=== PATIENT | female | born 1965 | race Caucasian/White ===

== ENCOUNTER 2019-09-16 21:59 | Emergency (ER) | payer OTHER ==
[~2019-09-16] VITALS: Ht 165.1 cm; Wt 53.5 kg
--- NOTE | 2019-09-16 22:57 | RAD ---
Exam: Chest one view INDICATION: Chest pain TECHNIQUE: Frontal view of the chest Comparisons: None FINDINGS: The cardiomediastinal silhouette and pulmonary vessels are within normal limits. The lung and pleural spaces are clear. IMPRESSION: No acute cardiopulmonary process. Electronically signed by: Luann Handley MD (09/16/2019 10:54 PM) [id number]
[2019-09-16] MEDS ORDERED: diazePAM 5 MG TABLET. PO ONE (23:00)
[2019-09-16] MEDS ORDERED: MECLIZINE 12.5 MG TABLET. PO ONE (23:00)
--- NOTE | 2019-09-16 23:38 | PHYS DOC ---
General Adult EDM: Chief Complaint: DIZZY/LIGHT HEADED HPI: HPI: 54-year-old female past medical history of lower extremity neuropathy and tobacco dependence, presents to the ED with complaints of, " my head feels foggy, I have pain behind my eyes, and I have had intermittent dizzy spells for the past 2 months." States the same symptoms recurred today while watching TV around 1 PM. Reports symptoms are exacerbated with standing or sudden changes in position. Also reports that she feels as if her ribs are bruised underneath both breasts. Cannot recall any trauma, head injury or fall. No recent upper respiratory infection. States as if she feels the room is spinning. No history of syncope. No family history of ACS, aortic or connective tissue disease, sudden , or clotting disorders. Review of Systems: Review of Systems: Constitutional: Denies fever or chills Eyes: Denies change in visual acuity HENT: Denies nasal congestion or sore throat Respiratory: Denies cough or shortness of breath Cardiovascular: Denies chest pain or edema GI: Denies abdominal pain, nausea, vomiting, bloody stools or diarrhea : Denies dysuria Musculoskeletal: Denies back pain or joint pain Integument: Denies rash Neurologic: Denies headache, focal weakness or sensory changes Endocrine: Denies polyuria or polydipsia Lymphatic: Denies swollen glands Psychiatric: Denies depression or anxiety Heart Score: HEART Score for Chest Pain: HEART Score for Chest Pain Response (Comments) Value History Slighlty/Non-Suspicious 0 ECG Normal 0 Age >45 - < 65 1 Risk Factors 1 or 2 Risk Factors 1 Troponin < Normal Limit 0 Total 2 Risk Factors: Risk Factors: DM, Current or recent (<one month) smoker, HTN, HLP, family history of CAD, obesity. Risk Scores: Score 0 - 3: 2.5% MACE over next 6 weeks - Discharge Home Score 4 - 6: 20.3% MACE over next 6 weeks - Admit for Clinical Observation Score 7 - 10: 72.7% MACE over next 6 weeks - Early Invasive Strategies Current Medications: Current Meds: Current Medications Medications (Trade) Dose Ordered Sig/John Start Time Stop Time Status Last Admin Dose Admin Diazepam (Valium) 7.5 mg 1X ONCE 09/16/19 23:00 09/16/19 23:19 DC 8/8/20 23:08 7.5 MG Meclizine HCl (Antivert) 25 mg 1X ONCE 09/16/19 23:00 09/16/19 23:19 DC 09/16/19 23:08 25 MG Allergies: Allergies: Allergies Coded Allergies Type Severity Reaction Last Updated Verified Penicillins Allergy Mild 09/16/19 Yes Physical Exam: PE: Constitutional: Well developed, well nourished, no acute distress, non-toxic appearance. [] HENT: Normocephalic, atraumatic, bilateral external ears normal, oropharynx moist, no oral exudates, nose normal. [] Horizontal nystagmus works when looking left Eyes: PERRLA, EOMI, conjunctiva normal, no discharge. [] Neck: Normal range of motion, no tenderness, supple, no stridor. [] Cardiovascular:Heart rate regular rhythm, no murmur [] Lungs & Thorax: Bilateral breath sounds clear to auscultation [] Abdomen: Bowel sounds normal, soft, no tenderness, no masses, no pulsatile masses. [] Skin: Warm, dry, no erythema, no rash under breasts. [] Back: No tenderness, no CVA tenderness. [] Extremities: No tenderness, no cyanosis, no clubbing, ROM intact, no edema. [] Neurologic: Alert and oriented X 3, normal motor function, normal sensory function, no focal deficits noted. [] Its exam concerning for peripheral etiology, normal cerebellar ucdziit-lyeorw-lnmn-finger and rapid alternating movements, no gait ataxia Psychologic: Affect normal, judgement normal, mood normal. [] EKG: EKG: Normal sinus rhythm at 59 bpm, no axis deviation, normal intervals, T wave inversion aVL, no ST elevations or ST depressions Radiology/Procedures: Radiology/Procedures: IMAGING REPORT Signed PATIENT: MARSHA BETTS ACCOUNT: [id number] : 1965 LOCATION: ER AGE: 54 SEX: F EXAM STATUS: REG ER ORD. PHYSICIAN: DANIELLA VELASQUEZ DO REASON: cp PROCEDURE: PORTABLE CHEST 1V Exam: Chest one view INDICATION: Chest pain TECHNIQUE: Frontal view of the chest Comparisons: None FINDINGS: The cardiomediastinal silhouette and pulmonary vessels are within normal limits. The lung and pleural spaces are clear. IMPRESSION: No acute cardiopulmonary process. Electronically signed by: Luann Ng MD (09/16/2019 10:54 PM) [id number] DICTATED AND SIGNED BY: LUANN NG MD DATE: 09/16/193 CC: RED[facility] CULVER MD; [facility] ~ Course & Med Decision Making: Course & Med Decision Making Pertinent Labs and Imaging studies reviewed. (See chart for details) Concern for brief vertiginous episodes in a well-appearing female with no neurologic deficits and steady gait. DC home with meclizine. Chest x-ray and labs are unremarkable. Encouraged urgent outpatient follow-up with PMD and ENT. Life-threatening processes were considered but are low suspicion at this time, given history and physical exam. All patient's questions were answered and pt was stable at time of discharge. I spoken with the patient and her caregivers. I explained the patient's condition, diagnoses and treatment plan based on the information available to me at this time. I have answered the patient and her caregiver's questions and addressed any concerns. The patient and her caregivers have a good understanding of patient's diagnosis, condition and treatment plan as can be expected at this point. Vital signs have been stable. Patient's condition is stable and appropriate for discharge from the emergency department. Patient will pursue further outpatient evaluation with primary care physician or other designated or consulting physician as outlined in the discharge instructions. The patient and/or caregivers are agreeable to this plan of care and follow-up instructions have been explained in detail. The patient and/or c aregivers have received these instructions in written form and have expressed an understanding of the discharge instructions. The patient and/or caregivers are aware that any significant change of condition or worsening of symptoms should prompt immediate return to this or the closest emergency department or call to 911. [place] Disclaimer: Drag[employer] Disclaimer: This electronic medical record was generated, in whole or in part, using a voice recognition dictation system. Departure Departure: Impression: Primary Impression: Dizziness Additional Impression: Vertigo Disposition: 01 HOME/RESIDENCE PRIOR TO ADM Condition: STABLE Referrals: REDDY CULVER MD (PCP) ENT-otolaryngology, head and neck surgery Make an appointment: [phone] Patient Instructions: Benign Positional Vertigo, Vertigo Scripts Meclizine Hcl (MECLIZINE HCL) 12.5 Mg Tablet 1 TAB PO TID for dizziness, #30 TAB Prov: DANIELLA VELASQUEZ DO 09/17/19 Justification of Admission: Justification of Admission: Justification of Admission Dx: N/A DANIELLA VELASQUEZ DO Sep 16, 2019 23:38
[2019-09-17 00:05] LABS: CALCIUM 8.6 mg/dL (8.5-10.1); CREATININE 0.8 mg/dL (0.6-1.0); GFR 74.2; POTASSIUM 3.5 mmol/L (3.5-5.1)
[2019-09-17 00:06] LABS: BASO % 1 % (0-3); EOS % 1 % (0-3); HEMOGLOBIN 13.9 g/dL (12.0-15.5); LYMPH # 1.6 x10^3/uL (1.0-4.8); LYMPH % 24 % (24-48); MEAN CORPUSCULAR HEMOGLOBIN 35 pg (25-35); MEAN CORPUSCULAR HGB CONC 35 g/dL (31-37); MEAN CORPUSCULAR VOLUME 102 fL (79-100); MONO # 0.5 x10^3/uL (0.0-1.1); MONO % 8 % (0-9); NEUT # 4.4 x10^3uL (1.8-7.7); NEUT % 67 % (31-73); PLATELET COUNT 215 x10^3/uL (140-400); RED BLOOD COUNT 3.93 x10^6/uL (3.50-5.40); RED CELL DISTRIBUTION WIDTH 13.1 % (11.5-14.5); WHITE BLOOD COUNT 6.6 x10^3/uL (4.0-11.0)
[2019-09-17 00:18] LABS: ALBUMIN 3.7 g/dL (3.4-5.0); ALBUMIN/GLOBULIN RATIO 1.1 (1.0-1.7); TOTAL BILIRUBIN 0.3 mg/dL (0.2-1.0); TOTAL PROTEIN 7.1 g/dL (6.4-8.2)
[2019-09-17 00:30] VITALS: BP 127/77
[2019-09-17] MEDS ORDERED: MECL12.573 PO (00:32)
--- NOTE | 2019-09-17 00:34 | EKG ---
[address] [address] Test Date: 2019-09-16 Test Time: 22:00:57 Pat Name: MARSHA BETTS Department: Room: Gender: F [employer]aker: : 1965 Requested By: DANIELLA VELASQUEZ Order Number: [id number] Reading MD: Measurements Intervals [place] Rate: 59 P: 69 MA: 180 QRS: 75 QRSD: 88 T: 73 QT: 404 QTc: 404 Interpretive Statements SINUS RHYTHM NORMAL ECG RI6.02 No previous ECG available for comparison
== END 2019-09-17 00:41 | disposition home or self-care (01) ==
LOC: ER 21:59
DX: R42 Dizziness and giddiness (principal); G62.9 Polyneuropathy, unspecified; F17.200 Nicotine dependence, unspecified, uncomplicated; Z88.0 Allergy status to penicillin
CPT/HCPCS: 36415; 71045; 80053; 83880; 84484; 85025; 93005; 99285; J8597